=== PATIENT | female | born 1940 | race Caucasian/White ===

== ENCOUNTER → 2017-01-19 | Outpatient (CLI) | payer MEDICARE, OTHER ==
[~2017-01-19] MED LIST: ABILIFY10 MG; ASPIRIN CHILDRE81 M1 PO; BENAZEPRIL HYDR40 MG PO; BUMETANIDE1 MG PO; BYSTOLIC5 MG PO; CALCIUM600 M1 PO; CRESTOR10 MG PO; DICYCLOMINE20 MG PO; GABAPENTIN 600600 MG PO; KLOR-CON M2020 MEQ PO; LEVOTHYROXINE0.1 M2 PO; MULTIVITAMIN1 TA1 PO; OMEPRAZOLE40 MG PO; PROBIOTIC FORMU1 CA1 PO; RED YEAST RICE600 MG PO
[2017-01-19 11:51] LABS: HEMOGLOBIN 13.6 g/dL (12.2-16.2); LYMPH # 1.9 K/mm3 (0.7-4.5); LYMPH % 20.9 % (10-50.0)
[2017-01-19 12:14] LABS: BUN 13 mg/dL (7-18); GFR (ESTIMATED) 40 ML/MIN (59-)
== END ==
LOC: LAB 11:43
PROVIDERS: Internal Medicine
DX: R10.13 Epigastric pain (principal)

== ENCOUNTER → 2017-01-21 | Outpatient (CLI) | payer MEDICARE, OTHER ==
--- NOTE | 2017-01-21 13:09 | RADIOLOGY REPORT PS360 ---
US ABD(COMPLETE-MULTI ORGANS HISTORY: EPIGASTRIC PAIN ORDERING PHYSICIAN: Huber Francois MD PATIENT AGE: 76 years COMPARISON: None FINDINGS: PANCREAS:Unremarkable. No obvious mass or abnormal fluid collection. No ductal dilatation LIVER:No focal liver lesions demonstrated. Homogeneous echogenicity. No intrahepatic biliary ductal dilatation evident RIGHT KIDNEY:Unremarkable. Normal size and echogenicity. No hydronephrosis LEFT KIDNEY:Unremarkable. No hydronephrosis. Normal size and echogenicity. GALLBLADDER:No gallstones, gallbladder wall thickening, pericholecystic fluid, or biliary dilatation. AORTA:Not well delineated due to overlying bowel gas SPLEEN:Unremarkable. Normal size and echogenicity ASCITES:None demonstrated. IMPRESSION: Unremarkable abdominal ultrasound.
== END ==
LOC: RAD 08:05
DX: R10.13 Epigastric pain (principal)